=== PATIENT | male | born 1950 | race Caucasian/White ===

== ENCOUNTER 2021-08-26 14:06 | Emergency (ER) | payer MEDICARE, OTHER, SELFPAY ==
[2021-08-26] VITALS (11 sets, daily range): BP systolic 94–119; BP diastolic 57–68; PULSE 56–68; RESP 13–22; O2SAT 93–97; BMI 25.8
--- NOTE | 2021-08-26 14:18 | DI.RAD.S_ITS ---
PROCEDURE: XR CHEST 1V INDICATIONS: chest pain TECHNIQUE: One view of the chest was acquired. COMPARISON: [facility], CR, XR CHEST 1 VIEW, 12/30/2019, 14:30. FINDINGS: Surgical changes and devices: Multiple electronic leads are seen projecting over the right chest. Lungs and pleura: Mild blunting of the left costophrenic angle may represent a small consolidation, atelectasis, or a trace effusion. No pneumothorax. Mediastinum: Mediastinal contours appear normal. Heart size is normal. Bones and chest wall: No suspicious bony lesions. Overlying soft tissues appear unremarkable. IMPRESSION: Mild blunting of the left costophrenic angle is nonspecific and could represent atelectasis, small consolidation, or trace pleural effusion. Dictated by: Mick Moses M.D. on 08/26/2021 at 14:46 Approved by: Mick Moses M.D. on 08/26/2021 at 14:48
--- NOTE | 2021-08-26 14:20 | ED_ITS ---
HPI - Chest Pain <Flaco Saldivar PA-C - Last Filed: 08/26/21 19:04> General Chief Complaint: Chest Pain Stated Complaint: chest pain Time Seen by Provider: 08/26/21 14:12 Source: patient and EMS Mode of arrival: EMS History of Present Illness HPI narrative: Patient is a 71-year-old male who presents to the ED via EMS for chest pain. [place] doing no strenuous activity started developing some substernal chest pain that radiated into his back. He has a history of previous SC with multiple stents back in 2019. He states that the symptoms he is having today are similar to those back in 2019. He recently had surgery for a Bam fundalipication for chronic reflux. EMS reports EKG within normal limits patient had taken 3 nitroglycerin sublingual try prior to EMS. EMS reports giving him 2 nitroglycerin sublingual with some fentanyl for his chest pain. The 3 nitroglycerin prior to EMS did not alleviate his chest pain however the 2 nitro and the fentanyl from EMS did alleviate his chest pain down to a 5/10. His initial chest pain was radiated 10/10. He describes the pain to be a pressure sensation substernal nonradiating. Initially he did state the pain did radiate into his back however in the ED is only having localized chest pressure in the center of his chest. No reported nausea vomiting diarrhea no fever no cough no congestion. Related Data Allergies Allergy/AdvReac Type Severity Reaction Status Date / Time morphine AdvReac Verified 08/26/21 14:19 Review of Systems <Flaco Saldivar PA-C - Last Filed: 08/26/21 19:04> Review of Systems ROS Unobtainable: All systems reviewed & are unremarkable except as noted in HPI and below Constitutional Constitutional: Denies chills, Denies fatigue, Denies fever(s), Denies frequent falls, Denies lethargy and Denies weakness Eyes Eyes: Denies change in vision, Denies eye discharge, Denies irritation and Denies loss of vision ENT Ears, Nose, Mouth, and Throat: Denies change in voice, Denies dizziness, Denies neck pain, Denies sore throat and Denies throat swelling Cardiovascular Cardiovascular: Reports chest pain, Denies irregular heart rhythm, Denies lightheadedness, Denies palpitations, Denies dyspnea, Denies dyspnea on exertion and Denies orthopnea Respiratory Respiratory: Denies cough, Denies dyspnea, Denies dyspnea on exertion and Denies wheezing Gastrointestinal Gastrointestinal: Denies abdominal pain, Denies change in bowel habits, Denies diarrhea, Denies nausea and Denies vomiting Genitourinary Genitourinary: Denies hematuria, Denies flank pain, Denies urinary incontinence and Denies urinary urgency Musculoskeletal Musculoskeletal: Denies back pain, Denies muscle weakness, Denies neck pain, Denies numbness and Denies tingling Integumentary/Breasts Skin/Breast: Denies pruritus, Denies erythema, Denies rash and Denies wounds Neurologic Neurologic: Denies behavioral changes, Denies confusion, Denies dizziness, Denies frequent falls, Denies loss of vision, Denies numbness, Denies tingling and Denies weakness Psychiatric Psychiatric: Denies anxiety, Denies behavioral changes, Denies confusion, Denies depression, Denies homicidal ideation and Denies suicidal ideation Endocrine Endocrine: Denies fatigue, Denies flushing and Denies palpitations Hematologic/Lymphatic Hematologic/Lymphatic: Denies easy bruising Allergic/Immunologic Allergic/Immunologic: Denies urticaria, Denies throat swelling and Denies wheezing Patient History <Flaco Saldivar PA-C - Last Filed: 08/26/21 19:04> Social History Smoking Status: Former smoker Smoking Status: Former smoker Substance Use Type: does not use Exam <Flaco Saldivar PA-C - Last Filed: 08/26/21 19:04> Initial Vital Signs Initial Vital Signs: Vital Signs Pulse Rate 61 08/26/21 14:30 Respiratory Rate 17 08/26/21 14:30 Blood Pressure 96/60 08/26/21 14:30 Pulse Oximetry 97 08/26/21 14:30 Const General: cooperative, healthy appearing and comfortable Nutritional Appearance: average body habitus Orientation: Orientation [facility] Head: normal to inspection and normocephalic Ears: hearing grossly normal bilaterally and external ears normal Nose: external nose normal and nares normal Face and sinus: normal facial exam and sinuses nontender Mouth: oral mucosae normal Teeth and gingiva: dentition normal Resp Effort & Inspection: normal respiratory effort and able to speak in complete sentences Auscultation: clear to auscultation bilaterally Percussion: percussion normal Cardio Palpation: normal PMI Rate: regular rate Rhythm: regular rhythm Heart Sounds: S1 normal and S2 normal GI Inspection: normal to inspection and abdominal wall ecchymosis Palpation: soft and no hepatosplenomegaly Percussion: normal to percussion Auscultation: normal bowel sounds Skin General: no rashes or lesions noted Neuro General: patient alert, patient awake and patient oriented x3 <DO Mark Son Last Filed: 08/27/21 03:26> Initial Vital Signs Initial Vital Signs: Vital Signs Pulse Rate 61 08/26/21 14:30 Respiratory Rate 17 08/26/21 14:30 Blood Pressure 96/60 08/26/21 14:30 Pulse Oximetry 97 08/26/21 14:30 Scores <Flaco Saldivar PA-C - Last Filed: 08/26/21 19:04> HEART Score Heart Score history: Moderately Suspicious Heart Score EKG: Normal Heart Score Age: > or = 65 years old Heart Score risk factors: 1-2 risk factors Heart Score troponin: < or = to normal limit Heart Score Total: 4 <DO Mark Son Last Filed: 08/27/21 03:26> HEART Score Heart Score Total: 4 Course <ELENITA Molina Last Filed: 08/26/21 19:04> Orders Ordered: Discontinued Medications Al Hydrox/Mg Hydrox/Simethicone 20 ml/ Lidocaine HCl 15 ml 0 ml PO NOW ONE Stop: 08/26/21 15:13 Last Admin: 08/26/21 15:21 Dose: 30 ml Documented by: MYRA Fentanyl (Fentanyl 100 Mcg/2 Ml Inj) 50 mcg IV NOW ONE Stop: 08/26/21 16:03 Last Admin: 08/26/21 16:25 Dose: 50 mcg Documented by: THANIA Consultations Consultation #1: I spoke to Cardiology on-call which is Dr. Ozuna, he reviewed the case and suggested that the patient be admitted and have a stress test done in the [facility]. Vital Signs Vital signs: Vital Signs - 8 hr 08/26/21 14:30 08/26/21 15:00 08/26/21 15:30 Pulse Rate 61 62 60 Respiratory Rate 17 17 17 Blood Pressure 96/60 94/60 99/59 L Pulse Oximetry 97 94 95 08/26/21 16:00 08/26/21 16:01 08/26/21 16:30 Pulse Rate 68 68 60 Respiratory Rate 17 22 15 Blood Pressure 104/58 L 115/62 Pulse Oximetry 94 93 93 08/26/21 17:00 08/26/21 17:30 Pulse Rate 58 L 60 Respiratory Rate 13 13 Blood Pressure 108/57 L 108/62 Pulse Oximetry 94 94 <Michelle Jean Baptiste DO - Last Filed: 08/27/21 03:26> Orders Ordered: Discontinued Medications Al Hydrox/Mg Hydrox/Simethicone 20 ml/ Lidocaine HCl 15 ml 0 ml PO NOW ONE Stop: 08/26/21 15:13 Last Admin: 08/26/21 15:21 Dose: 30 ml Documented by: MYRA Fentanyl (Fentanyl 100 Mcg/2 Ml Inj) 50 mcg IV NOW ONE Stop: 08/26/21 16:03 Last Admin: 08/26/21 16:25 Dose: 50 mcg Documented by: THANIA Vital Signs Vital signs: Vital Signs - 8 hr 08/26/21 14:30 08/26/21 15:00 08/26/21 15:30 Pulse Rate 61 62 60 Respiratory Rate 17 17 17 Blood Pressure 96/60 94/60 99/59 L Pulse Oximetry 97 94 95 08/26/21 16:00 08/26/21 16:01 08/26/21 16:30 Pulse Rate 68 68 60 Respiratory Rate 17 22 15 Blood Pressure 104/58 L 115/62 Pulse Oximetry 94 93 93 08/26/21 17:00 08/26/21 17:30 Pulse Rate 58 L 60 Respiratory Rate 13 13 Blood Pressure 108/57 L 108/62 Pulse Oximetry 94 94 MDM - Chest Pain <Flaco Saldivra PA-C - Last Filed: 08/26/21 19:04> Differential Diagnosis Differential diagnosis: Likely unstable angina pectoris and chest pain Lab Data Result diagrams: 08/26/21 14:20 08/26/21 14:20 Labs: Lab Results 08/26/21 08/26/21 08/26/21 Range/Units 14:20 14:20 17:59 WBC 8.3 (4.5-11.0) X10^3/uL RBC 4.61 (4.5-5.9) X10^6/uL Hgb 14.2 (13.5-17.5) g/dL Hct 41.8 (41-53) % MCV 90.6 (80-100) fL MCH 30.7 (26-34) PG MCHC 33.9 (30-36) % RDW 14.2 (11.6-14.8) % Plt Count 529 H (150-400) X10^3/uL Neut % (Auto) 63.1 (50-75) % Lymph % (Auto) 22.3 L (25-40) % [place] % (Auto) 7.0 (3-14) % Eos % (Auto) 6.9 H (2-4) % Baso % (Auto) 0.7 (0-2) % Neut # (Auto) 5300 (8439-1431) /uL Lymph # (Auto) 1900 (9843-7605) /uL [place] # (Auto) 600 (0-900) /uL Eos # (Auto) 600 H (0-450) /uL Baso # (Auto) 100 (0-100) /uL Sodium 139 (137-145) mmol/L Potassium 4.4 (3.4-5.1) mmol/L Chloride 106 (98-107) mmol/L Carbon Dioxide 22 (22-32) mmol/L BUN 22 H (9-20) mg/dL Creatinine 1.13 (0.66-1.25) mg/dL Estimated GFR > 60 (>60) mL/min BUN/Creatinine Ratio 19.5 (6-22) Glucose 137 H (80-110) mg/dL Calcium 9.4 (8.4-10.2) mg/dL Total Bilirubin 1.0 (0.2-1.3) mg/dL AST 27 (17-59) IU/L ALT 21 (<50) IU/L Alkaline Phosphatase 88 (38-126) U/L Total Creatine Kinase 107 73 (55-170) U/L CK-MB (CK-2) 0.80 TNP (<2.37) ng/mL CK-MB (CK-2) Rel Index 0.7 L TNP (1.5-5.0) % Troponin I < 0.012 < 0.012 (0.01-0.034) ng/mL NT-Pro-B Natriuret Pep 57 (<125) pg/mL Total Protein 7.4 (6.3-8.2) g/dL Albumin 4.2 (3.5-5.0) g/dL Globulin 3.2 (1.7-4.1) g/dL Albumin/Globulin Ratio 1.3 (1.0-2.8) Lipase 137 (23-300) U/L Imaging Data Chest x-ray: Radiologist's Impression: [address] [address] XRay Report Signed Patient: Sanjay Engel MR#: [id number] : 1950 Acct:[id number] Age/Sex: 71 / M Date of Service: 08/26/21 Loc: ED Accession Number: [id number] ?? Procedure: XR chest 1V Ordering Provider: Flaco Saldivar P.A-C PROCEDURE:? XR CHEST 1V ? INDICATIONS:? chest pain ? TECHNIQUE:? One view of the chest was acquired.? ? COMPARISON:? [facility], , XR CHEST 1 VIEW, 12/30/2019, 14:30. ? FINDINGS:? ? Surgical changes and devices:? Multiple electronic leads are seen projecting over the right chest.? ? Lungs and pleura:? Mild blunting of the left costophrenic angle may represent a small consolidation, atelectasis, or a trace effusion.? No pneumothorax. ? Mediastinum:? Mediastinal contours appear normal.? Heart size is normal.? ? Bones and chest wall:? No suspicious bony lesions.? Overlying soft tissues appear unremarkable.? ? IMPRESSION:? Mild blunting of the left costophrenic angle is nonspecific and could represent atelectasis, small consolidation, or trace pleural effusion. ? ? Dictated by: Mick Moses M.D. on 08/26/2021 at 14:46 ? ? Approved by: Mick Moses M.D. on 08/26/2021 at 14:48?? [facility] Narrative Medical decision making narrative: Patient was evaluated today for his chest pain. EMS gave him nitroglycerin and fentanyl of which he is self administered 3 nitros prior to arrival. He presented with a 7/10 chest pain he was given additional fentanyl and a GI cocktail with some relief of his symptoms. His EKGs were unremarkable and his labs essentially were negative. He had repeat troponin done that was negative. I contacted Cardiology on-call spoke to him about his case and based on his history and previous cardiac stents and CABG he recommended admitting the patient and doing a stress test in a.m.. I spoke with the patient regarding the recommendations by the business services tech patient reports that he had an angiogram done a month ago which was essentially negative and he is requesting to be discharged home. I spoke to him specifically about the risks and that the business services tech believed that this would be cardiac in nature the origin of this chest pain. He acknowledged the recommendations and stated that if his chest pain did return or worsen that he would return to the ED. Patient was discharged home at the patient's request. <Michelle Jean Baptiste, DO - Last Filed: 08/27/21 03:26> Lab Data Labs: Lab Results 08/26/21 08/26/21 08/26/21 Range/Units 14:20 14:20 17:59 WBC 8.3 (4.5-11.0) X10^3/uL RBC 4.61 (4.5-5.9) X10^6/uL Hgb 14.2 (13.5-17.5) g/dL Hct 41.8 (41-53) % MCV 90.6 (80-100) fL MCH 30.7 (26-34) PG MCHC 33.9 (30-36) % RDW 14.2 (11.6-14.8) % Plt Count 529 H (150-400) X10^3/uL Neut % (Auto) 63.1 (50-75) % Lymph % (Auto) 22.3 L (25-40) % [place] % (Auto) 7.0 (3-14) % Eos % (Auto) 6.9 H (2-4) % Baso % (Auto) 0.7 (0-2) % Neut # (Auto) 5300 (6919-4577) /uL Lymph # (Auto) 1900 (1950-5063) /uL [place] # (Auto) 600 (0-900) /uL Eos # (Auto) 600 H (0-450) /uL Baso # (Auto) 100 (0-100) /uL Sodium 139 (137-145) mmol/L Potassium 4.4 (3.4-5.1) mmol/L Chloride 106 (98-107) mmol/L Carbon Dioxide 22 (22-32) mmol/L BUN 22 H (9-20) mg/dL Creatinine 1.13 (0.66-1.25) mg/dL Estimated GFR > 60 (>60) mL/min BUN/Creatinine Ratio 19.5 (6-22) Glucose 137 H (80-110) mg/dL Calcium 9.4 (8.4-10.2) mg/dL Total Bilirubin 1.0 (0.2-1.3) mg/dL AST 27 (17-59) IU/L ALT 21 (<50) IU/L Alkaline Phosphatase 88 (38-126) U/L Total Creatine Kinase 107 73 (55-170) U/L CK-MB (CK-2) 0.80 TNP (<2.37) ng/mL CK-MB (CK-2) Rel Index 0.7 L TNP (1.5-5.0) % Troponin I < 0.012 < 0.012 (0.01-0.034) ng/mL NT-Pro-B Natriuret Pep 57 (<125) pg/mL Total Protein 7.4 (6.3-8.2) g/dL Albumin 4.2 (3.5-5.0) g/dL Globulin 3.2 (1.7-4.1) g/dL Albumin/Globulin Ratio 1.3 (1.0-2.8) Lipase 137 (23-300) U/L Discharge Plan Departure Patient Disposition: Home Clinical Impression: Chest pain, Unstable angina pectoris Activity Restrictions/Additional Instructions: You were seen today for your chest pain. Your lab work did not show any changes in your cardiac enzymes. Her EKG remained stable. The cardiology that was consulted suggested that you have a stress test scheduled for in the morning. Because you declined I am discharging you at your request. It is important that you understand that if you have a return of your chest pain or your symptoms get worse that you need to return to the emergency room immediately. It would be my recommendation for you to follow-up with your business services tech as soon as possible to alert them of your ED evaluation. Thank you for the opportunity to care for you today. Referrals: Popeye Calvetr MD [Primary Care Provider] - <Michelle Jean Baptiste DO - Last Filed: 08/27/21 03:26> Cosign ED Attending Cosignature Attestation: I was immediately available in the department for consultation. Documentation has been reviewed.
[2021-08-26 14:26] LABS: Add Manual Diff / Slide Review NO; Basophils Absolute Auto 100 /uL (0-100); Basophils Percent Auto 0.7 % (0-2); Eosinophils Absolute Auto 600 /uL (0-450); Eosinophils Percent Auto 6.9 % (2-4); Hematocrit 41.8 % (41-53); Hemoglobin 14.2 g/dL (13.5-17.5); Lymphocytes Absolute Auto 1900 /uL (1100-4500); Lymphocytes Percent Auto 22.3 % (25-40); Mean Corpuscular HGB Conc 33.9 % (30-36); Mean Corpuscular Hemoglobin 30.7 PG (26-34); Mean Corpuscular Volume 90.6 fL (80-100); Monocytes Absolute Auto 600 /uL (0-900); Neutrophils Absolute Auto 5300 /uL (1500-7000); Neutrophils Percent Auto 63.1 % (50-75); Platelet Count 529 X10^3/uL (150-400); Red Blood Cell Count 4.61 X10^6/uL (4.5-5.9); Red Cell Distribution Width 14.2 % (11.6-14.8); White Blood Cell Count 8.3 X10^3/uL (4.5-11.0)
[2021-08-26 14:42] LABS: Alanine Aminotransferase 21 IU/L (<50); Albumin 4.2 g/dL (3.5-5.0); Albumin Globulin Ratio 1.3 (1.0-2.8); Alkaline Phosphatase 88 U/L (38-126); Calcium 9.4 mg/dL (8.4-10.2); Carbon Dioxide 22 mmol/L (22-32); Chloride 106 mmol/L (98-107); Creatine Kinase 107 U/L (55-170); Estimated Glomerular Filt Rate > 60 mL/min (>60); Globulin 3.2 g/dL (1.7-4.1); Glucose 137 mg/dL (80-110); Lipase 137 U/L (23-300); Sodium 139 mmol/L (137-145); Total Protein 7.4 g/dL (6.3-8.2)
[2021-08-26 14:53] LABS: NT-proBNP (BNP-Adult 18+) 57 pg/mL (<125); Troponin I < 0.012 ng/mL (0.01-0.034)
[2021-08-26 14:57] LABS: CKMB % Relative Index 0.7 % (1.5-5.0)
[2021-08-26] MEDS: MAG HYDROX/ALUMINUM/SIMETH SUS 20 ML, LIDOCAINE VISCOUS 2% 15 ML PO (15:21)
[2021-08-26 16:17] LABS: Aspartate Aminotransferase 27 IU/L (17-59); Potassium 4.4 mmol/L (3.4-5.1)
[2021-08-26 16:20] LABS: BUN Creatinine Ratio 19.5 (6-22); Blood Urea Nitrogen 22 mg/dL (9-20); HEMOLYSIS < 15 (0-50)
[2021-08-26] MEDS: fentaNYL 100 MCG/2 ML INJ 50 MCG IV (16:25)
[2021-08-26 18:14] LABS: Creatine Kinase 73 U/L (55-170)
[2021-08-26 18:26] LABS: Troponin I < 0.012 ng/mL (0.01-0.034)
== END 2021-08-26 19:16 | disposition home or self-care (01) ==
PROVIDERS: Emergency Provider Physician Assistant; PCP Internal Medicine
DX: I20.0 Unstable angina (principal); R07.9 Chest pain, unspecified; I25.2 Old myocardial infarction
CPT/HCPCS: 36415; 71045; 80053; 82550; 82553; 83690; 83880; 84484; 85025; 93005; 93010; 96374; 99284; J3010